=== PATIENT | male | born 1945 | race Caucasian/White ===

== ENCOUNTER 2017-04-28 11:13 | Inpatient (IN) | payer MEDICARE, OTHER ==
[~2017-04-28] VITALS: Ht 182.9 cm; Wt 135.0 kg
[2017-04-28] MEDS ORDERED: ONDANSETRON HCL 4 MG/2 ML VIAL IV ONE (11:45)
[2017-04-28 12:20] LABS: Basophils # (auto) 0 uL; Basophils % (auto) 0.3 % (0.0-2.0); Eosinophils # (auto) 0 uL; Eosinophils % (auto) 0.4 % (0.0-7.0); Hematocrit 45.4 % (41.0-53.0); Hemoglobin 15.5 g/dL (13.5-17.5); Lymphocytes # (auto) 0.6 uL; Lymphocytes % (auto) 6.9 % (10.0-50.0); Mean Corpuscular Hemoglobin 32.9 pg (28.0-32.0); Mean Corpuscular Hgb Conc. 34.1 g/dL (32.0-36.0); Mean Corpuscular Volume 96.3 fL (80.0-100.0); Monocytes # (auto) 0.7 uL; Monocytes % (auto) 7.8 % (0.0-12.0); Neutrophils % (auto) 84.6 % (37.0-80.0); Nucleated Red Blood Cells % 0.3 %; Platelet Count (auto) 428 10^3/uL (140-450); Red Blood Cells 4.72 10^6/uL (4.5-5.90); Red Cell Distribution Width 14.7 % (11.8-14.3); White Blood Cell 9.4 10^3/uL (4.4-10.8)
[2017-04-28 12:31] LABS: Potassium 4.2 mmol/L (3.5-5.1)
[2017-04-28 12:33] LABS: BUN/Creatinine Ratio 10.7; Lactic Acid w/Reflex 2.9 mmol/L (0.4-2.0)
[2017-04-28 12:34] LABS: INR 1.04 (0.9-1.15); Partial Thromboplastin Time 24.9 sec (22.64-33.71); Prothrombin Time 11.3 sec (9.37-12.3)
[2017-04-28 12:36] LABS: Bilirubin, Total 0.3 mg/dL (0.2-1.0); Total Protein 7.2 g/dL (6.4-8.2)
[2017-04-28] MEDS ORDERED: HYDROcodone-ACET 10/325MG TAB PO ONE (12:45)
[2017-04-28] MEDS ORDERED: IPRATROPIUM BROM 0.5 MG/2.5ML INH SOL NEB ONE (12:45)
[2017-04-28] MEDS ORDERED: ALBUTEROL SULF 2.5 MG/0.5ML(0.5%) NEB SOLN NEB ONE (12:45)
[2017-04-28 14:23] LABS: Urine Bacteria NONE SEEN /hpf (None Seen); Urine Blood Negative /uL (Negative); Urine Mucus FEW (None Seen); Urine Specific Gravity 1.048 (1.001-1.035); Urine WBC 2 /hpf (0 - 3)
[2017-04-28] MEDS ORDERED: SODIUM CHLORIDE 0.9% 1,000 ML IV ONE ×2 (14:54)
[2017-04-28] MEDS ORDERED: PIPERACILLIN-TAZOB 3.375GM 50 ML IV ONE (15:00)
[2017-04-28] MEDS ORDERED: VANCOMYCIN PER PHARMACY 0 MG IV SCH ×2 (15:00→15:30)
[2017-04-28] MEDS ORDERED: HYDROcodone-ACET 5/325MG TAB PO PRN (15:30)
[2017-04-28] MEDS ORDERED: cefTRIAXone 1GM/10ml IVPUSH 10 ML IV ONE (15:30)
[2017-04-28] MEDS ORDERED: TEMAZEPAM 15 MG CAP PO PRN (15:30)
[2017-04-28] MEDS ORDERED: DOCUSATE SOD 100 MG CAP PO PRN (15:30)
[2017-04-28] MEDS ORDERED: cloNIDine HCL 0.1 MG TAB PO PRN (15:30)
[2017-04-28] MEDS ORDERED: MORPHINE SULFATE 10 MG/ML INJ 1ML SDV IV PRN (15:30)
[2017-04-28] MEDS ORDERED: ACETAMINOPHEN 325 MG TAB PO PRN (15:30)
[2017-04-28] MEDS ORDERED: NITROGLYCERIN 0.4 MG SL TAB SL PRN (15:30)
[2017-04-28] MEDS ORDERED: DEXTROSE (50%) 50ML SYRG IV PRN (15:45)
[2017-04-28] MEDS: SODIUM CHLORIDE 0.9% 1,000 ML IV SCH (15:49)
[2017-04-28] MEDS: VANCOMYCIN 1,500 MG in D5W 5% 250 ML IV SCH (15:50)
[2017-04-28] MEDS: MORPHINE SULFATE 10 MG/ML INJ 1ML SDV IV PRN ×2 (15:53→20:29)
[2017-04-28] MEDS: InsuLIN REG 1unit/0.01ml Soln (100units/ml) SC SCH ×2 (16:29→21:53)
[2017-04-28] MEDS: ACCU-CHEK COMFORT CURVE STRIP VI SCH ×2 (16:29→21:53)
[2017-04-28 18:56] VITALS: BP 137/70
[2017-04-28] MEDS: IPRATROPIUM BROM 0.5 MG/2.5ML INH SOL NEB SCH (19:57)
[2017-04-28] MEDS: ALBUTEROL SULF 2.5 MG/0.5ML(0.5%) NEB SOLN NEB SCH (19:57)
[2017-04-28] MEDS: ONDANSETRON HCL 4 MG/2 ML VIAL IV PRN (20:29)
[2017-04-28] MEDS: ENALAPRIL MALEATE 2.5 MG TAB PO SCH (21:52)
[2017-04-28] MEDS: FAMOTIDINE 20 MG TAB PO SCH (21:52)
[2017-04-28 22:00] VITALS: BP 140/76
[2017-04-28 23:50] VITALS: BP 142/68
[2017-04-28 23:54] VITALS: BP 140/76
[2017-04-29] MEDS: IPRATROPIUM BROM 0.5 MG/2.5ML INH SOL NEB SCH ×4 (01:00→18:40)
[2017-04-29] MEDS: ALBUTEROL SULF 2.5 MG/0.5ML(0.5%) NEB SOLN NEB SCH ×4 (01:00→18:40)
[2017-04-29] MEDS: MORPHINE SULFATE 10 MG/ML INJ 1ML SDV IV PRN ×6 (01:09→22:52)
[2017-04-29] MEDS: ONDANSETRON HCL 4 MG/2 ML VIAL IV PRN ×6 (01:09→22:51)
[2017-04-29] MEDS: VANCOMYCIN 1,500 MG in D5W 5% 250 ML IV SCH ×2 (03:54→17:33)
[2017-04-29 05:23] VITALS: BP_SYST 138; BP_SYST 145; BP_DIAS 75; BP_DIAS 83
[2017-04-29] MEDS: ACCU-CHEK COMFORT CURVE STRIP VI SCH ×4 (05:26→21:14)
[2017-04-29] MEDS: InsuLIN REG 1unit/0.01ml Soln (100units/ml) SC SCH ×4 (05:44→21:14)
[2017-04-29 07:14] LABS: Basophils # (auto) 0 uL; Basophils % (auto) 0.4 % (0.0-2.0); Eosinophils # (auto) 0.1 uL; Eosinophils % (auto) 1.3 % (0.0-7.0); Hematocrit 41.1 % (41.0-53.0); Hemoglobin 13.7 g/dL (13.5-17.5); Lymphocytes # (auto) 1.1 uL; Lymphocytes % (auto) 15.6 % (10.0-50.0); Mean Corpuscular Hemoglobin 32.8 pg (28.0-32.0); Mean Corpuscular Hgb Conc. 33.3 g/dL (32.0-36.0); Mean Corpuscular Volume 98.5 fL (80.0-100.0); Monocytes # (auto) 1.1 uL; Monocytes % (auto) 14.5 % (0.0-12.0); Neutrophils % (auto) 68.2 % (37.0-80.0); Platelet Count (auto) 342 10^3/uL (140-450); Red Blood Cells 4.17 10^6/uL (4.5-5.90); White Blood Cell 7.4 10^3/uL (4.4-10.8)
[2017-04-29 07:39] LABS: Alanine Aminotransferase 16 U/L (16-61); Albumin 3.4 g/dL (3.4-5.0); Anion Gap 8 (5-15); Aspartate Aminotransferase 20 U/L (15-37); BUN/Creatinine Ratio 11.8; Blood Urea Nitrogen 6 mg/dL (7-18); Calcium 8.6 mg/dL (8.5-10.1); Carbon Dioxide 28 mmol/L (21-32); Chloride 96 mmol/L (98-107); GFR African American 207 mL/min; GFR Non-African American 171 mL/min; Glucose 147 mg/dL (74-106); Potassium 3.7 mmol/L (3.5-5.1); Sodium 132 mmol/L (136-145)
[2017-04-29 07:43] LABS: Alkaline Phosphatase 56 U/L (45-117); Bilirubin, Total 0.4 mg/dL (0.2-1.0)
[2017-04-29] MEDS: SODIUM CHLORIDE 0.9% 1,000 ML IV SCH (07:50)
[2017-04-29 09:09] VITALS: BP 112/71
[2017-04-29] MEDS: ENOXAPARIN SOD 40 MG/0.4 ML SYRINGE SC SCH (09:13)
[2017-04-29] MEDS: MULTIPLE VITAMIN TAB PO SCH (09:13)
[2017-04-29] MEDS: amLODIPine BESYLATE 5 MG TAB PO SCH (09:14)
[2017-04-29] MEDS: FAMOTIDINE 20 MG TAB PO SCH ×2 (09:14→21:15)
[2017-04-29] MEDS: LORATADINE 10 MG TAB PO SCH (09:14)
[2017-04-29] MEDS: ENALAPRIL MALEATE 2.5 MG TAB PO SCH ×2 (09:15→21:15)
[2017-04-29] MEDS: cefTRIAXone 1GM/10ml IVPUSH 10 ML IV SCH (09:15)
[2017-04-29 12:40] VITALS: BP 140/66
[2017-04-29] MEDS ORDERED: LORA5SYP23 PO (15:31)
[2017-04-29] MEDS ORDERED: AML5T PO (15:31)
[2017-04-29] MEDS ORDERED: GABA100C9 PO (15:31)
[2017-04-29 16:34] VITALS: BP 139/67
[2017-04-29 22:00] VITALS: BP 117/68
[2017-04-30] MEDS: ALBUTEROL SULF 2.5 MG/0.5ML(0.5%) NEB SOLN NEB SCH ×3 (00:50→12:03)
[2017-04-30] MEDS: IPRATROPIUM BROM 0.5 MG/2.5ML INH SOL NEB SCH ×3 (00:50→12:03)
[2017-04-30] MEDS: MORPHINE SULFATE 10 MG/ML INJ 1ML SDV IV PRN ×2 (03:15→08:08)
[2017-04-30] MEDS: ONDANSETRON HCL 4 MG/2 ML VIAL IV PRN ×2 (03:15→08:08)
[2017-04-30 03:25] LABS: Basophils # (auto) 0.1 uL; Basophils % (auto) 1.7 % (0.0-2.0); Eosinophils # (auto) 0.2 uL; Eosinophils % (auto) 2.4 % (0.0-7.0); Hematocrit 40.3 % (41.0-53.0); Hemoglobin 13.5 g/dL (13.5-17.5); Lymphocytes # (auto) 0.9 uL; Lymphocytes % (auto) 14.2 % (10.0-50.0); Mean Corpuscular Hemoglobin 32.9 pg (28.0-32.0); Mean Corpuscular Hgb Conc. 33.4 g/dL (32.0-36.0); Mean Corpuscular Volume 98.5 fL (80.0-100.0); Monocytes % (auto) 15.6 % (0.0-12.0); Neutrophils # (auto) 4.3 uL; Neutrophils % (auto) 66.1 % (37.0-80.0); Nucleated Red Blood Cells % 0.1 %; Platelet Count (auto) 294 10^3/uL (140-450); Red Cell Distribution Width 14.7 % (11.8-14.3); White Blood Cell 6.5 10^3/uL (4.4-10.8)
[2017-04-30 03:48] LABS: BUN/Creatinine Ratio 11.1; Potassium 4.2 mmol/L (3.5-5.1)
[2017-04-30] MEDS: VANCOMYCIN 1,500 MG in D5W 5% 250 ML IV SCH (04:12)
[2017-04-30] MEDS: SODIUM CHLORIDE 0.9% 1,000 ML IV SCH (04:23)
[2017-04-30 05:04] VITALS: BP 146/77
[2017-04-30] MEDS: InsuLIN REG 1unit/0.01ml Soln (100units/ml) SC SCH ×2 (06:58→12:32)
[2017-04-30] MEDS: ACCU-CHEK COMFORT CURVE STRIP VI SCH ×2 (06:58→12:32)
[2017-04-30 08:00] VITALS: BP 141/72
[2017-04-30 09:22] VITALS: BP 162/79
[2017-04-30] MEDS: LORATADINE 10 MG TAB PO SCH (10:38)
[2017-04-30] MEDS: cefTRIAXone 1GM/10ml IVPUSH 10 ML IV SCH (10:38)
[2017-04-30] MEDS: amLODIPine BESYLATE 5 MG TAB PO SCH (10:38)
[2017-04-30] MEDS: MULTIPLE VITAMIN TAB PO SCH (10:38)
[2017-04-30] MEDS: ENOXAPARIN SOD 40 MG/0.4 ML SYRINGE SC SCH (10:39)
[2017-04-30] MEDS: FAMOTIDINE 20 MG TAB PO SCH (10:39)
[2017-04-30] MEDS: ENALAPRIL MALEATE 2.5 MG TAB PO SCH (10:39)
[2017-04-30 12:45] VITALS: BP 161/82
== END 2017-04-30 13:05 | disposition home or self-care (01) | DRG 871 ==
LOC: ER 11:13 → TELE 11:14 → TELE-WESTW 18:05
PROVIDERS: ADMIT Internal Medicine; ATTEND Internal Medicine
DX: A41.9 Sepsis, unspecified organism (principal); J18.9 Pneumonia, unspecified organism; I85.00 Esophageal varices without bleeding; E11.9 Type 2 diabetes mellitus without complications; I11.9 Hypertensive heart disease without heart failure; E87.1 Hypo-osmolality and hyponatremia; J44.0 Chronic obstructive pulmonary disease with (acute) lower respiratory infection; J44.1 Chronic obstructive pulmonary disease with (acute) exacerbation; J45.901 Unspecified asthma with (acute) exacerbation; Z68.41 Body mass index [BMI] 40.0-44.9, adult; J20.9 Acute bronchitis, unspecified; E66.9 Obesity, unspecified; G89.29 Other chronic pain; I25.10 Atherosclerotic heart disease of native coronary artery without angina pectoris; K57.30 Diverticulosis of large intestine without perforation or abscess without bleeding; Z83.3 Family history of diabetes mellitus
CPT/HCPCS: 36415; 70450; 71045; 74176; 80048; 80053; 80202; 81001; 82962; 83036; 83605; 83880; 84443; 84484; 85025; 85610; 85730; 87040; 87400; 93005; 93306; 93970; 94640; 96365; 96375; J1815; J2405; J2543; J7060

== ENCOUNTER 2019-04-27 12:07 | Emergency (ER) | payer MEDICARE ==
[~2019-04-27] VITALS: Ht 182.9 cm; Wt 120.2 kg
[~2019-04-27 12:07] MED LIST: AML5T PO; GABA100C9 PO; LORA5SYP23 PO
[2019-04-27] MEDS ORDERED: SODIUM CHLORIDE 0.9% 1,000 ML IVB ONE (12:40)
[2019-04-27] MEDS ORDERED: ACETAMINOPHEN 325 MG TAB PO ONE (12:45)
[2019-04-27 13:01] LABS: Basophils # (auto) 0.1 uL; Basophils % (auto) 0.7 % (0.0-2.0); Eosinophils # (auto) 0.3 uL; Eosinophils % (auto) 3.5 % (0.0-7.0); Hematocrit 34.3 % (41.0-53.0); Hemoglobin 11.5 g/dL (13.5-17.5); Lymphocytes # (auto) 1.6 uL; Lymphocytes % (auto) 21.4 % (10.0-50.0); Mean Corpuscular Hemoglobin 32.2 pg (28.0-32.0); Mean Corpuscular Hgb Conc. 33.7 g/dL (32.0-36.0); Mean Corpuscular Volume 95.6 fL (80.0-100.0); Monocytes # (auto) 0.8 uL; Monocytes % (auto) 10.7 % (0.0-12.0); Neutrophils # (auto) 4.7 uL; Neutrophils % (auto) 63.7 % (37.0-80.0); Platelet Count (auto) 377 10^3/uL (140-450); Red Blood Cells 3.58 10^6/uL (4.5-5.90); Red Cell Distribution Width 16.3 % (11.8-14.3); White Blood Cell 7.3 10^3/uL (4.4-10.8)
[2019-04-27 13:19] LABS: Albumin 3.2 g/dL (3.4-5.0)
[2019-04-27 13:22] LABS: Bilirubin, Total 0.3 mg/dL (0.2-1.0); Total Protein 6.3 g/dL (6.4-8.2)
[2019-04-27 15:05] LABS: Amphetamine Screen, Urine NEGATIVE (NEGATIVE); Barbiturate Scree,Urine NEGATIVE (NEGATIVE); Benzodiazephine Screen, Urine NEGATIVE (NEGATIVE); Cannabinoid Screen, Urine NEGATIVE (NEGATIVE); Cocaine Screen, Urine NEGATIVE (NEGATIVE); Opiate Scree,Urine NEGATIVE (NEGATIVE); Phencyclidine Screen, Urine NEGATIVE (NEGATIVE)
[2019-04-27 16:15] VITALS: BP 134/71
== END 2019-04-27 16:15 | disposition home or self-care (01) ==
LOC: EDBD 12:07 → ER 12:14
DX: F10.129 Alcohol abuse with intoxication, unspecified (principal); J44.9 Chronic obstructive pulmonary disease, unspecified; R42 Dizziness and giddiness; E11.9 Type 2 diabetes mellitus without complications; I10 Essential (primary) hypertension; Y90.9 Presence of alcohol in blood, level not specified
CPT/HCPCS: 36415; 70450; 71045; 72125; 80053; 80307; 80320; 85025; 93005; 96360; 96361; 99284; J7030

== ENCOUNTER 2021-04-05 18:20 | Inpatient (IN) | payer MEDICARE ==
[~2021-04-05] VITALS: Ht 182.9 cm; Wt 129.5 kg
[2021-04-05 19:02] LABS: Basophils # (auto) 0 10 ^3/uL (0-0.2); Basophils % (auto) 0.7 % (0.0-2.0); Eosinophils # (auto) 0.1 10 ^3/uL (0-0.8); Eosinophils % (auto) 2.7 % (0.0-7.0); Hematocrit 35.6 % (41.0-53.0); Lymphocytes # (auto) 0.6 10 ^3/uL (0.4-5.4); Lymphocytes % (auto) 13.3 % (10.0-50.0); Mean Corpuscular Hemoglobin 32.7 pg (28.0-32.0); Mean Corpuscular Hgb Conc. 33.6 g/dL (32.0-36.0); Mean Corpuscular Volume 97.2 fL (80.0-100.0); Monocytes # (auto) 0.5 10 ^3/uL (0-1.3); Monocytes % (auto) 10.9 % (0.0-12.0); Neutrophils % (auto) 72.4 % (37.0-80.0); Red Blood Cells 3.67 10^6/uL (4.5-5.90); Red Cell Distribution Width 15.9 % (11.8-14.3); White Blood Cell 4.2 10^3/uL (4.4-10.8)
[2021-04-05 19:42] LABS: Albumin 3.2 g/dL (3.4-5.0); Calcium 8.4 mg/dL (8.5-10.1); Potassium 4.4 mmol/L (3.5-5.1)
[2021-04-05 19:47] LABS: BUN/Creatinine Ratio 17.5; Bilirubin, Total 0.4 mg/dL (0.2-1.0); Total Protein 6.2 g/dL (6.4-8.2)
[2021-04-05] MEDS ORDERED: SODIUM CHLORIDE 0.9% 500 ML IV ONE (20:15)
[2021-04-05 21:55] LABS: Urine Bacteria NONE SEEN /hpf (None Seen); Urine Blood Negative /uL (Negative); Urine Specific Gravity 1.011 (1.001-1.035); Urine WBC <1 /hpf (0 - 3)
[2021-04-05] MEDS ORDERED: HYDROcodone-ACET 10/325MG TAB PO ONE (22:30)
[2021-04-05] MEDS ORDERED: TEMAZEPAM 15 MG CAP PO PRN (23:15)
[2021-04-05] MEDS ORDERED: ONDANSETRON HCL 4 MG/2 ML VIAL IV PRN (23:15)
[2021-04-05] MEDS ORDERED: DEXTROSE (50%) 50ML SYRG IV PRN (23:15)
[2021-04-05] MEDS ORDERED: ACETAMINOPHEN 325 MG TAB PO PRN (23:15)
[2021-04-05] MEDS ORDERED: MECLIZINE HCL 25 MG TAB PO ONE (23:15)
[2021-04-05] MEDS ORDERED: MECLIZINE HCL 25 MG TAB PO PRN (23:15)
[2021-04-06] VITALS (8 sets, daily range): BP systolic 120–168; BP diastolic 70–95
[2021-04-06] MEDS ORDERED: PNEUMOCOCCAL VACC POLYS 25 MCG/0.5 ML VIAL IM ONE (02:15)
[2021-04-06] MEDS ORDERED: INFLUENZA QUAD 2021-2022 0.5 ML SYRG IM ONE (02:15)
[2021-04-06 06:01] LABS: Basophils # (auto) 0 10 ^3/uL (0-0.2); Basophils % (auto) 0.7 % (0.0-2.0); Eosinophils # (auto) 0.1 10 ^3/uL (0-0.8); Eosinophils % (auto) 2.8 % (0.0-7.0); Hematocrit 32.8 % (41.0-53.0); Hemoglobin 11.2 g/dL (13.5-17.5); Lymphocytes # (auto) 0.9 10 ^3/uL (0.4-5.4); Mean Corpuscular Hemoglobin 32.9 pg (28.0-32.0); Mean Corpuscular Volume 96.6 fL (80.0-100.0); Monocytes # (auto) 0.6 10 ^3/uL (0-1.3); Monocytes % (auto) 13.3 % (0.0-12.0); Neutrophils # (auto) 2.7 10 ^3/uL (1.6-8.6); Neutrophils % (auto) 62.2 % (37.0-80.0); Nucleated Red Blood Cells % 0.2 %; Red Blood Cells 3.39 10^6/uL (4.5-5.90); White Blood Cell 4.4 10^3/uL (4.4-10.8)
[2021-04-06 06:32] LABS: Chloride 97 mmol/L (98-107); Potassium 4.1 mmol/L (3.5-5.1); Sodium 134 mmol/L (136-145)
[2021-04-06 06:43] LABS: Anion Gap 10 (5-15); BUN/Creatinine Ratio 16.7; Blood Urea Nitrogen 6 mg/dL (7-18); Calcium 8.3 mg/dL (8.5-10.1); Carbon Dioxide 27 mmol/L (21-32); GFR African American 305 mL/min; GFR Non-African American 252 mL/min; Glucose 157 mg/dL (74-106)
[2021-04-06] MEDS: InsuLIN REG 1unit/0.01ml Soln (100units/ml) SC SCH ×4 (06:52→21:58)
[2021-04-06] MEDS: ACCU-CHEK COMFORT CURVE STRIP VI SCH ×4 (07:00→21:56)
[2021-04-06] MEDS: HYDROcodone-ACET 5/325MG TAB PO PRN ×3 (09:53→22:08)
[2021-04-06] MEDS: ENOXAPARIN SOD 40 MG/0.4 ML SYRINGE SC SCH (09:53)
[2021-04-06] MEDS: amLODIPine BESYLATE 5 MG TAB PO SCH (09:54)
[2021-04-06] MEDS: GABAPENTIN 100 MG CAP PO SCH (22:00)
[2021-04-07] VITALS (7 sets, daily range): BP systolic 107–136; BP diastolic 49–79
[2021-04-07] MEDS: HYDROcodone-ACET 5/325MG TAB PO PRN ×4 (02:14→21:43)
[2021-04-07] MEDS: GABAPENTIN 100 MG CAP PO SCH ×3 (06:11→21:42)
[2021-04-07] MEDS: ACCU-CHEK COMFORT CURVE STRIP VI SCH ×4 (06:30→21:42)
[2021-04-07] MEDS: InsuLIN REG 1unit/0.01ml Soln (100units/ml) SC SCH ×4 (06:31→21:44)
[2021-04-07] MEDS: ENOXAPARIN SOD 40 MG/0.4 ML SYRINGE SC SCH (09:42)
[2021-04-07] MEDS: amLODIPine BESYLATE 5 MG TAB PO SCH (10:00)
[2021-04-07] MEDS: ALBUTEROL SULF 2.5 MG/0.5ML(0.5%) NEB SOLN NEB SCH ×4 (12:32→23:28)
[2021-04-07] MEDS ORDERED: LORazepam 2MG/ML-1ML VIAL IV PRN (17:00)
[2021-04-08] MEDS: HYDROcodone-ACET 5/325MG TAB PO PRN ×4 (03:39→22:13)
[2021-04-08 05:00] VITALS: BP 123/83
[2021-04-08] MEDS: ACCU-CHEK COMFORT CURVE STRIP VI SCH ×4 (06:11→22:14)
[2021-04-08] MEDS: GABAPENTIN 100 MG CAP PO SCH ×3 (06:21→22:13)
[2021-04-08] MEDS: InsuLIN REG 1unit/0.01ml Soln (100units/ml) SC SCH ×4 (06:23→23:39)
[2021-04-08] MEDS: ALBUTEROL SULF 2.5 MG/0.5ML(0.5%) NEB SOLN NEB SCH ×3 (07:30→18:54)
[2021-04-08 08:00] VITALS: BP 116/49
[2021-04-08 09:00] VITALS: BP 104/65
[2021-04-08] MEDS: ENOXAPARIN SOD 40 MG/0.4 ML SYRINGE SC SCH (10:09)
[2021-04-08] MEDS: amLODIPine BESYLATE 5 MG TAB PO SCH (10:10)
[2021-04-08 13:00] VITALS: BP 106/56
[2021-04-08 17:00] VITALS: BP 135/70
[2021-04-08 22:00] VITALS: BP 129/67
[2021-04-09] MEDS: ALBUTEROL SULF 2.5 MG/0.5ML(0.5%) NEB SOLN NEB SCH ×3 (00:24→11:36)
[2021-04-09] MEDS: HYDROcodone-ACET 5/325MG TAB PO PRN (02:22)
[2021-04-09 05:00] VITALS: BP 118/64
[2021-04-09] MEDS: GABAPENTIN 100 MG CAP PO SCH (06:33)
[2021-04-09] MEDS: ACCU-CHEK COMFORT CURVE STRIP VI SCH (06:33)
[2021-04-09] MEDS: InsuLIN REG 1unit/0.01ml Soln (100units/ml) SC SCH (06:38)
[2021-04-09 08:00] VITALS: BP 104/65
[2021-04-09 09:00] VITALS: BP 133/67
[2021-04-09] MEDS ORDERED: MECL25CH38 PO (09:26)
[2021-04-09 09:53] VITALS: BP 104/65
[2021-04-09] MEDS: ENOXAPARIN SOD 40 MG/0.4 ML SYRINGE SC SCH (11:21)
[2021-04-09] MEDS: amLODIPine BESYLATE 5 MG TAB PO SCH (11:21)
== END 2021-04-09 13:49 | disposition home or self-care (01) | DRG 305 ==
LOC: EDBD 18:20 → ER 18:23 → OVERFLOW 23:13 → WEST WING 04-06 01:05
PROVIDERS: ADMIT Nurse Practitioner; ATTEND Family Medicine
DX: I11.9 Hypertensive heart disease without heart failure (principal); E66.9 Obesity, unspecified; I25.10 Atherosclerotic heart disease of native coronary artery without angina pectoris; R26.89 Other abnormalities of gait and mobility; G89.29 Other chronic pain; M54.9 Dorsalgia, unspecified; D64.9 Anemia, unspecified; Z20.822 Contact with and (suspected) exposure to COVID-19; E11.42 Type 2 diabetes mellitus with diabetic polyneuropathy; F17.200 Nicotine dependence, unspecified, uncomplicated; J44.9 Chronic obstructive pulmonary disease, unspecified; R00.0 Tachycardia, unspecified; E78.00 Pure hypercholesterolemia, unspecified; R42 Dizziness and giddiness; Z68.38 Body mass index [BMI] 38.0-38.9, adult; Z80.0 Family history of malignant neoplasm of digestive organs; Z82.49 Family history of ischemic heart disease and other diseases of the circulatory system; Z83.3 Family history of diabetes mellitus; Z23 Encounter for immunization
CPT/HCPCS: 36415; 70450; 70480; 71045; 80048; 80053; 81001; 82962; 84484; 85025; 85379; 87426; 93005; 93306; 93886; 94640; 96361; 96374; 97116; 97163; 97530; G0378; J1815; J2405